=== PATIENT | male | born 1990 | race Two or more races ===

== ENCOUNTER 2017-07-18 04:21 | Emergency (ER) | payer MEDICAID ==
[~2017-07-18] VITALS: Ht 182.9 cm; Wt 78.1 kg
[~2017-07-18 04:21] MED LIST: CLIN300C8 PO; QUET50TA5 PO; TRIA15CR3 TP
[2017-07-18 04:31] VITALS: BP 110/70
== END 2017-07-18 06:01 | disposition home or self-care (01) ==
LOC: ED 05:14
DX: R21 Rash and other nonspecific skin eruption (principal); J45.909 Unspecified asthma, uncomplicated; Z86.14 Personal history of Methicillin resistant Staphylococcus aureus infection
CPT/HCPCS: 99283

== ENCOUNTER 2018-12-14 00:52 | Emergency (ER) | payer MEDICAID ==
[~2018-12-14] VITALS: Ht 182.9 cm; Wt 74.3 kg
[2018-12-14 00:54] VITALS: BP 117/76
--- NOTE | 2018-12-14 01:46 | NUR ---
MULTIPLE ATTEMPTS TO CUT RING OFF RIGHT POINTER FINGER. EMT AT BEDSIDE WITH RING CUTTER FOR ANOTHER ATTEMPT.
--- NOTE | 2018-12-14 02:33 | NUR ---
LUNCH RN: BS REPORT OF PT FROM SAIRA WATSON. ALL QUESTIONS ANSWERED. ASSUMING CARE OF PT AT THIS TIME. PT RING REMOVED SUCCESSFULLY.
--- NOTE | 2018-12-14 02:55 | NUR ---
PT D/C WITH D/C SUMMARY AND SCRIPTS. ALL QUESTIONS ANSWERED. PT DENIES ANY OTHER NEEDS PERTAINING TO THIS VISIT. PT AMBULATES TO REGISTRATION DESK WITH STEADY GAIT FOR D/C HOME WITH FRIEND.
== END 2018-12-14 02:58 | disposition home or self-care (01) ==
LOC: ED 02:30
DX: S60.450A Superficial foreign body of right index finger, initial encounter (principal); L20.84 Intrinsic (allergic) eczema; X58.XXXA Exposure to other specified factors, initial encounter; Y93.89 Activity, other specified; Y92.89 Other specified places as the place of occurrence of the external cause; Y99.8 Other external cause status
CPT/HCPCS: 99283; 99284